=== PATIENT | female | born 1990 | race Caucasian/White ===

== ENCOUNTER 2018-05-06 15:37 | Emergency (ER) | payer SELFPAY ==
[~2018-05-06] VITALS: Ht 162.6 cm; Wt 56.7 kg
[2018-05-06] MEDS: ALBUTEROL SULFATE 2.5 MG/3 ML NEBU NEB ONE (16:14)
[2018-05-06] MEDS ORDERED: ALBUTEROL SULFATE 2.5 MG/3 ML NEBU ONE (16:19)
--- NOTE | 2018-05-06 17:02 | NUR ---
Patient discharged to home in stable conditon. Written and verbal after care instructions given. Patient verbalizes understanding of instructions.pt says feels better. pt walks in steady gait. pt with friend
[2018-05-06 17:03] VITALS: BP 110/86
== END 2018-05-06 17:02 | disposition home or self-care (01) ==
LOC: ER 15:37
DX: J20.9 Acute bronchitis, unspecified (principal)
CPT/HCPCS: 71045; A4663